=== PATIENT | female | born 1935 | race Caucasian/White ===

== ENCOUNTER 2024-01-26 15:19 | Emergency (ER) | payer OTHER, BC ==
[2024-01-26 16:40] VITALS: RESP 18; BMI 21.9
[2024-01-26] MEDS: ACETAMINOPHEN 500 MG TABLET (FP) PO ONE (18:24)
[2024-01-26] MEDS ORDERED: ACETAMINOPHEN 325 MG TABLET (FP) ONE (18:26)
[2024-01-26 20:56] VITALS: BP 148/65; PULSE 73; TEMP 97.6
== END 2024-01-26 19:30 | disposition home or self-care (01) ==
LOC: JER 15:19
DX: S09.90XA Unspecified injury of head, initial encounter (principal); S01.511A Laceration without foreign body of lip, initial encounter; W01.0XXA Fall on same level from slipping, tripping and stumbling without subsequent striking against object, initial encounter
CPT/HCPCS: 70450-TC; 70486-TC; 72125-TC; 99284-25